=== PATIENT | female | born 1975 | race African-American/Black ===

== ENCOUNTER 2018-12-22 06:00 | Emergency (ER) | payer OTHER ==
[~2018-12-22] VITALS: Ht 172.7 cm; Wt 67.1 kg
[2018-12-22 07:15] VITALS: BP 128/64; Ht 172.7 cm; Wt 67.1 kg
== END 2018-12-22 07:18 | disposition home or self-care (01) ==
LOC: ED 06:00
DX: G03.8 Meningitis due to other specified causes (principal)